=== PATIENT | male | born 1980 | race Caucasian/White ===

== ENCOUNTER 2017-06-13 14:15 | Inpatient (IN) | payer MEDICARE, MEDICAID ==
[2017-06-13] MEDS ORDERED: METOCLOPRAMIDE HCL 5 MG/ML VIAL IV ONE (14:48)
[2017-06-13] MEDS ORDERED: NORMAL SALINE 1,000 ML IV ONE (14:48)
[2017-06-13] MEDS ORDERED: diphenhydrAMINE HCL 50 MG/ML VIAL IV ONE (14:48)
[2017-06-13] MEDS ORDERED: diphenhydrAMINE HCL 50 MG/ML VIAL ONE (14:50)
[2017-06-13] MEDS ORDERED: METOCLOPRAMIDE HCL 5 MG/ML VIAL ONE (14:51)
--- NOTE | 2017-06-13 15:11 | ERNOTE ---
Medical Problem HPI - General Chief Complaint: General Assessment Time Seen by Provider: 06/13/17 14:43 Source: patient, family Exam Limitations: no limitations, other - although there appears to be some cognitive impairment - Immun/Allergies/Home Medications Immunizations: IMMUNIZATION HX Immunizations Up to Date Yes History of Influenza Vaccine No Hx Pneumococcal Vaccination No Allergies/Adverse Reactions: Allergies No Known Allergies Allergy (Verified 03/13/16 14:58) Home Medications: HOME MEDICATIONS Levothyroxine Sodium [Synthroid] 50 mcg PO DAILY #0 tablet 06/04/13 [Last Taken 07/05/14 09:00] lamoTRIgine [Lamictal] 300 mg PO DAILY #0 tablet 06/04/13 [Last Taken 07/05/14 09:00] Esomeprazole Magnesium [Nexium] 40 mg PO QAM 07/05/14 [Last Taken 07/05/14 09:00 ] Lisinopril [Zestril] 10 mg PO DAILY 01/27/15 [Last Taken Unknown] Citalopram Hydrobromide [Celexa] 20 mg PO DAILY 07/22/15 [Last Taken Unknown] Naproxen [Naprosyn] 375 mg PO BID #30 tab 10/18/15 [Last Taken Unknown] - History of Present History Narrative: Mother is worried that the patient might be developing a bowel obstruction again as he is having some retching when he tries to eat. He has done this in the past and has a PEG tube in to do any decompression if needed. Timing: intermittent Severity: mild Review of Systems - Review of Systems Constitutional: Present: See HPI EYE: Present: no symptoms reported ENT: Present: no symptoms reported Respiratory: Present: no symptoms reported Cardiology: Present: no symptoms reported Gastrointestinal/Abdominal: Present: no symptoms reported Genitourinary: Present: no symptoms reported Musculoskeletal: Present: no symptoms reported Skin: Present: no symptoms reported Neurological: Present: no symptoms reported Endocrine: Present: no symptoms reported Hematologic/Lymphatic: Present: no symptoms reported Psych: Present: no symptoms reported - Patient's Past Medical History Patient History - Medical: GERD, Hypothyroidism, Other - bowel obstruction Patient History - Cardiac/Respiratory: Hypertension Patient History - Cancer: No Hx of Cancer Patient History - Surgical Procedures: Appendectomy, Cholecystectomy, Colon Resection, Other - PEG tube Patient History - Other: None - Family History Mother Family History - Medical: Diabetes Type 2 Insulin Dependent Family History - Cardiac/Respiratory: No pertinent hx Father Family History - Medical: No pertinent hx Family History - Cardiac/Respiratory: No pertinent hx - Social History Living Situations: home Abuse History: No History of abuse Psych History: No pertinent hx Smoking Status: Never smoker Have you smoked in the past 12 months: No Do you dip or chew tobacco: No Alcohol Use: sober Drug Use: none - Immunizations Immunizations Up to Date: Yes Hx Pneumococcal Vaccination: No History of Influenza Vaccine: No Physical Exam - Physical Exam General Appearance: Present: wd/wn, alert, no apparent distress Head Exam: Present: normal inspection, no evidence of injury Eye Exam: Normal inspection: bilateral, PERRL: bilateral Ears, Nose, Throat: Present: normal ENT inspection, H, normal pharynx Neck: Present: normal inspection, nontender Respiratory: Present: no respiratory distress, normal breath sounds, no accessory muscle use, chest nontender, lungs clear Cardiovascular/Chest: Present: no murmur, normal peripheral pulses, tachycardia Gastrointestinal/Abdominal: Present: normal bowel sounds, nontender, nondistended, soft, no organomegaly Rectal Exam: Present: deferred Back Exam: Present: normal inspection, normal range of motion Extremity Exam: Present: normal inspection, non-tender, no edema, normal range of motion Neurological Exam: Present: alert, oriented, normal mood/affect Skin Exam: Present: normal color, warm/dry Lymphatic Exam: Present: no adenopathy ED Progress - Results and Orders Patient's Lab Results:: I have reviewed the patient's lab results. - Vital Signs Patient's Vital Signs:: I have reviewed the patient's vital signs. Vital Signs: Vital Signs 06/13/17 14:26 Temperature 35.6 C L Pulse Rate 114 H Respiratory 18 Rate Blood Pressure 96/62 O2 Sat by Pulse 96 Oximetry - X-Ray X-Ray #1 X-Ray: abdomen Interpretation: Reviewed by me - Progress/Reassessment Chief Complaint: General Assessment Plan - Plan Plan: Unclear etiology for the pancreatitis, but the patient does not have any significant abdominal pain and as he appears to be in renal insufficiency from dehydration we will hold off on any CT at this moment. Patient be admitted for IV fluids, correction of the hypokalemia and possible CT versus ultrasound of the abdomen. Departure Clinical Impression: Dehydration, Hypokalemia Pancreatitis Qualifiers: Chronicity: acute Pancreatitis type: idiopathic Acute pancreatitis complication : unspecified Qualified Code(s): K85.00 - Idiopathic acute pancreatitis without necrosis or infection - Departure Disposition: Still a patient Condition: Fair
[2017-06-13 15:20] LABS: Hematocrit 48.1 % (42.0-52.0); Mean Cell Volume 82.5 fl (78-100); Mean Corpuscular Hemoglobin 30.9 pg (27-31); Mean Corpuscular Hgb Conc 37.4 g/dl (32-36); Mean Platelet Volume 9.6 fl (6.0-9.5); Platelet Count 260 K/mm3 (150-450); Red Blood Count 5.83 M/mm3 (4.7-6.0); Red Cell Distribution Width 12.1 % (11.5-14.0); White Blood Count 10.7 K/mm3 (4.0-10.5)
[2017-06-13 15:21] LABS: Total Cells Counted 100
[2017-06-13 15:31] LABS: Albumin * 3.9 gm/dl (3.4-5.0); Anion Gap 18.8 mmol/L (6.8-13.8); BUN/Creatinine Ratio 9.9 (9.0-21.6); Bilirubin, Total 0.6 mg/dL (0.0-1.1); Calcium * 9.2 mg/dL (7.9-10.9); Carbon Dioxide 22.2 mmol/L (24-32.6); Magnesium 2.4 mg/dL (1.2-2.8); Total Protein 8.3 gm/dL (6.2-8.2)
[2017-06-13 15:55] LABS: Atypical (Reactive) Lymph 1 % (0-2); Band 10 % (0-2.0); Immature Granulocyte 1 (0-1); Lymphocyte 8 % (20-51); Monocyte 19 % (0-9); Neutrophil 61 % (42-75); Neutrophil # 6.5 K/mm3 (1.3-6.0)
[2017-06-13 15:57] LABS: Platelet Estimate Normal (NORMAL); RBC Morphology Normal (NORMAL)
[2017-06-13 15:58] LABS: Dohle Bodies 1+; Toxic Granulation 1+
[2017-06-13] MEDS ORDERED: POTASSIUM CHLORIDE 20 MEQ in NORMAL SALINE 1,000 ML IV ONE ×2 (16:11→16:45)
--- NOTE | 2017-06-13 19:43 | HP ---
Chief Complaint - Chief Complaint Date of Service: 06/13/17 Time of Service: 17:13 Chief Complaint: Retching History of Present Illness: Reji is a 37 yo male that presents to the [facility] ER with three days of retching. Reji is cognitively impaired and most of the history is obtained from his mom. He has a history of intestinal malrotation and bowel obstructions. He has a PEG tube that has been used in the past for decompression during episodes of bowel obstruction. The retching was not associated with any other symptoms so patient and mother did not bring him to the ER until today. Normally when he has a bowel obstruction he has no bowel sounds and stool amount decreases. The patient's mom reports he has continued to have normal bowel movements and normal bowel sounds this week. He denies abdominal pain, but his mom reports he has a high pain tolerance and does not normally have pain with his prior bowel obstructions. - Patient's Past Medical History Patient History - Medical: GERD, Hypothyroidism, Other - Intestinal malrotation/ bowel obstruction Patient History - Cardiac/Respiratory: Hypertension Patient History - Cancer: No Hx of Cancer Patient History - Surgical Procedures: Appendectomy, Cholecystectomy, Colon Resection, Other - PEG tube placement Patient History - Other: None - Family History Mother Family History - Medical: Diabetes Type 2 Insulin Dependent Family History - Cardiac/Respiratory: No pertinent hx Father Family History - Medical: No pertinent hx Family History - Cardiac/Respiratory: No pertinent hx - Social History Living Situations: home Abuse History: No History of abuse Psych History: No pertinent hx Smoking Status: Never smoker Have you smoked in the past 12 months: No Do you dip or chew tobacco: No Alcohol Use: sober Drug Use: none - Immunizations Immunizations Up to Date: Yes Hx Pneumococcal Vaccination: No History of Influenza Vaccine: No Review Of Systems (GEN) - Review of Systems Generalized/Overall Review: Absent: Weakness, Chills, Fever EENTM: Present: No Symptoms Reported Respiratory: Absent: Cough, Shortness of Breath Cardiac: Absent: Chest Pain, Edema, Palpitations Abdominal: Present: Vomiting, Diarrhea - Normal for patient. Absent: Nausea, Abdominal Pain Genitourinary: Present: No Symptoms Reported Musculoskeletal: Present: No Symptoms Reported Neurological: Present: No Symptoms Reported Skin: Present: No Symptoms Reported Immunizations: IMMUNIZATION HX Immunizations Up to Date Yes History of Influenza Vaccine No Hx Pneumococcal Vaccination No Allergies/Adverse Reactions: Allergies Allergy/AdvReac Type Severity Reaction Status Date / Time No Known Allergies Allergy Verified 06/13/17 17:40 Home Medications: HOME MEDICATIONS Levothyroxine Sodium [Synthroid] 50 mcg PO DAILY #0 tablet 06/04/13 [Last Taken 06/13/17] lamoTRIgine [Lamictal] 300 mg PO DAILY #0 tablet 06/04/13 [Last Taken 06/13/17] Esomeprazole Magnesium [Nexium] 40 mg PO QAM 07/05/14 [Last Taken 06/13/17] Lisinopril [Zestril] 10 mg PO DAILY 01/27/15 [Last Taken 06/13/17] Citalopram Hydrobromide [Celexa] 20 mg PO DAILY 07/22/15 [Last Taken 06/13/17] Exam - Exam Vital Signs: Vital Signs - Last Taken Temp 36.9 C 06/13/17 17:44 Pulse 102 H 06/13/17 17:44 Resp 18 06/13/17 17:44 BP 101/63 06/13/17 17:44 Pulse Ox 100 06/13/17 17:44 Constitutional: Present: Alert, Oriented x3, Cooperative ENT Exam: Present: hearing grossly normal Eye Exam: bilateral eye: normal inspection Respiratory: Present: lungs clear, normal breath sounds, no respiratory distress Cardiovascular/Chest: Present: regular rate, rhythm, no edema, no murmur Abdomen: Present: Normal bowel sounds, soft, nontender, nondistended, no rebound tenderness, no hepatospenomegaly, other - PEG tube present surrounded with gauze (mom reports tube normally leaks a little) Skin Exam: Present: normal color, warm/dry, no cyanosis Appearance: Present: appropriate appearance, appropriate insight Eye contact: Present: cooperative, good eye contact, normal speech Diagnostic Studies: Laboratory Results WBC 10.7 K/mm3 (4.0-10.5) H 06/13/17 15:17 RBC 5.83 M/mm3 (4.7-6.0) 06/13/17 15:17 Hgb 18.0 gm/dL (13.5-18.0) 06/13/17 15:17 Hct 48.1 % (42.0-52.0) 06/13/17 15:17 MCV 82.5 fl (78-100) 06/13/17 15:17 MCH 30.9 pg (27-31) 06/13/17 15:17 MCHC 37.4 g/dl (32-36) H 06/13/17 15:17 RDW 12.1 % (11.5-14.0) 06/13/17 15:17 Plt Count 260 K/mm3 (150-450) 06/13/17 15:17 MPV 9.6 fl (6.0-9.5) H 06/13/17 15:17 Neutrophils % (Manual) 61 % (42-75) 06/13/17 15:17 Band Neuts % (Manual) 10 % (0-2.0) H 06/13/17 15:17 Lymphocytes % (Manual) 8 % (20-51) L 06/13/17 15:17 Monocytes % (Manual) 19 % (0-9) H 06/13/17 15:17 Immature Granulocytes 1 (0-1) 06/13/17 15:17 Neutrophils # (Manual) 6.5 K/mm3 (1.3-6.0) H 06/13/17 15:17 Lymphocytes # (Manual) 0.9 k/mm3 (1.5-3.5) L 06/13/17 15:17 Monocytes # (Manual) 2.0 k/mm3 (0.0-1.0) H 06/13/17 15:17 Atypic/Reactive Lymphs 1 % (0-2) 06/13/17 15:17 Toxic Granulation 1+ 06/13/17 15:17 Toxic Vacuolation 1+ 06/13/17 15:17 Dohle Bodies 1+ 06/13/17 15:17 Platelet Estimate Normal (NORMAL) 06/13/17 15:17 RBC Morphology Normal (NORMAL) 06/13/17 15:17 Sodium 132 mmol/L (132-142) 06/13/17 15:17 Plasma Sodium 133 mmol/L (130-142) 06/13/17 15:17 Potassium 3.0 mmol/L (3.4-4.6) L 06/13/17 15:17 Chloride 94 mmol/L (97-106) L 06/13/17 15:17 Carbon Dioxide 22.2 mmol/L (24-32.6) L 06/13/17 15:17 Anion Gap 18.8 mmol/L (6.8-13.8) H 06/13/17 15:17 BUN 18 mg/dL (6-23) 06/13/17 15:17 Creatinine 1.81 mg/dL (0.4-1.4) H 06/13/17 15:17 Est GFR (Non-Af Amer) 45 mL/min (60-130) L D 06/13/17 15:17 BUN/Creatinine Ratio 9.9 (9.0-21.6) 06/13/17 15:17 Random Glucose 167 mg/dL (70-110) H 06/13/17 15:17 Calcium 9.2 mg/dL (7.9-10.9) 06/13/17 15:17 Calcium Adj for Albumin 9.0 mg/dL (8.4-10.2) 06/13/17 15:17 Magnesium 2.4 mg/dL (1.2-2.8) 06/13/17 15:17 Total Bilirubin 0.6 mg/dL (0.0-1.1) 06/13/17 15:17 AST 23 U/L (0-48) 06/13/17 15:17 ALT 51 U/L (19-67) 06/13/17 15:17 Alkaline Phosphatase 81 U/L (50-170) 06/13/17 15:17 Total Protein 8.3 gm/dL (6.2-8.2) H 06/13/17 15:17 Albumin 3.9 gm/dl (3.4-5.0) 06/13/17 15:17 Lipase 635 U/L (73-393) H 06/13/17 15:17 Assessment/Plan - Assessment/Plan (1) Pancreatitis Assessment: Reji is a 37 yo male with Acute Pancreatitis. Lipase is 600. Patient is not the usual historian and symptoms may not be classic of pancreatitis. He denies abdominal pain, but due to the elevated lipase will admit for observation. Will make NPO and treat with IV fluids. Will recheck CMP and lipase/amylase in AM. If enzymes worsen will get abdominal CT. Will check lipids. No alcohol use and patient has previously had cholecystectomy. Problem: Acute Qualifiers: Chronicity: acute Pancreatitis type: idiopathic Acute pancreatitis complication: unspecified Qualified Code(s): K85.00 - Idiopathic acute pancreatitis without necrosis or infection (2) Hypokalemia Assessment: Will replace potassium in fluids and monitor potassium. Problem: Acute
[2017-06-14 06:33] LABS: Albumin * 3.5 gm/dl (3.4-5.0); Anion Gap 16.5 mmol/L (6.8-13.8); BUN/Creatinine Ratio 13.7 (9.0-21.6); Bilirubin, Total 0.7 mg/dL (0.0-1.1); Ca. Corrected For Albumin 8.7 mg/dL (8.4-10.2); Calcium * 8.6 mg/dL (7.9-10.9); Carbon Dioxide 23.1 mmol/L (24-32.6); Potassium 2.6 mmol/L (3.4-4.6); Total Protein 7.5 gm/dL (6.2-8.2)
[2017-06-14] MEDS: POTASSIUM CHLORIDE 20 MEQ TABLET.SA PO SCH ×2 (08:00→17:01)
[2017-06-14] MEDS: NORMAL SALINE 1,000 ML IV PRN ×3 (08:05→18:54)
[2017-06-14 12:19] LABS: Albumin * 3.2 gm/dl (3.4-5.0); Anion Gap 13.7 mmol/L (6.8-13.8); BUN/Creatinine Ratio 13.8 (9.0-21.6); Bilirubin, Total 0.7 mg/dL (0.0-1.1); Ca. Corrected For Albumin 8.5 mg/dL (8.4-10.2); Calcium * 8.2 mg/dL (7.9-10.9); Carbon Dioxide 24.1 mmol/L (24-32.6); Potassium 2.8 mmol/L (3.4-4.6); Total Protein 6.8 gm/dL (6.2-8.2)
[2017-06-14 13:09] LABS: Amylase * 88 U/L (25-115); Lipase 706 U/L (73-393)
[2017-06-14] MEDS ORDERED: DIATRIZOATE MEGLUMINE, SODIUM 30 ML BTL PO ONE (13:56)
[2017-06-14] MEDS: CITALOPRAM HYDROBROMIDE 20 MG TABLET PO SCH (18:20)
[2017-06-14] MEDS: LISINOPRIL 10 MG TABLET PO SCH (18:20)
[2017-06-14] MEDS: LEVOTHYROXINE SODIUM 50 MCG TABLET PO SCH (18:20)
[2017-06-14] MEDS: lamoTRIgine 100 MG TABLET PO SCH (18:21)
[2017-06-14] MEDS: POTASSIUM CHLORIDE IN WATER 100 ML IV SCH ×3 (20:33→23:58)
--- NOTE | 2017-06-14 23:51 | PN ---
Subjective - Date and Time Seen Date: 06/14/17 Time: 16:45 Subjective Narrative: Reji continued to have retching episodes. Especially after swallowing potassium pill. Potassium critical low at 2.6. Denies fever, chills. Lipase elevated at 800. Objective - Vitals Vitals: Last Vital Signs Temp 36.8 C 06/14/17 15:13 Pulse 99 06/14/17 18:20 Resp 22 H 06/14/17 15:13 BP 148/96 06/14/17 18:20 Pulse Ox 96 06/14/17 15:13 - Exam Constitutional: Present: Alert, Oriented x3, Cooperative ENT Exam: Present: hearing grossly normal Respiratory: Present: lungs clear, normal breath sounds Cardiovascular/Chest: Present: regular rate, rhythm, no murmur Abdomen: Present: Normal bowel sounds, soft, nontender, nondistended, other - PEG tube in place Skin Exam: Present: normal color, warm/dry, no cyanosis Assessment/Plan - Problems/Diagnosis (1) Hypokalemia Problem: Acute Narrative: Severe hypokalemia 2.6. Not responding to replaced potassium so far. Patient retching after potassium. Will replace potassium with IV potassium and recheck. Due to critical potassium not responding to initial treatment and unable to tolerate oral potassium will admit to inpatient status. (2) Pancreatitis Problem: Acute Qualifiers: Chronicity: acute Pancreatitis type: idiopathic Acute pancreatitis complication: unspecified Qualified Code(s): K85.00 - Idiopathic acute pancreatitis without necrosis or infection Narrative: Elevated lipase. Will get abdominal CT to evaluate pancreas. Continue NPO and IV fluids.
[2017-06-15] MEDS: POTASSIUM CHLORIDE IN WATER 100 ML IV SCH (01:34)
[2017-06-15 06:16] LABS: Hematocrit 41.6 % (42.0-52.0); Hemoglobin 15.3 gm/dL (13.5-18.0); Mean Cell Volume 83.7 fl (78-100); Mean Corpuscular Hemoglobin 30.8 pg (27-31); Mean Corpuscular Hgb Conc 36.8 g/dl (32-36); Mean Platelet Volume 9.4 fl (6.0-9.5); Platelet Count 201 K/mm3 (150-450); Red Blood Count 4.97 M/mm3 (4.7-6.0); Red Cell Distribution Width 12.2 % (11.5-14.0); White Blood Count 7.8 K/mm3 (4.0-10.5)
[2017-06-15 06:18] LABS: Albumin * 3.1 gm/dl (3.4-5.0); Anion Gap 13.8 mmol/L (6.8-13.8); BUN/Creatinine Ratio 13.8 (9.0-21.6); Bilirubin, Total 0.6 mg/dL (0.0-1.1); Ca. Corrected For Albumin 8.8 mg/dL (8.4-10.2); Calcium * 8.4 mg/dL (7.9-10.9); Carbon Dioxide 24.1 mmol/L (24-32.6); Potassium 2.9 mmol/L (3.4-4.6); Total Protein 6.7 gm/dL (6.2-8.2)
[2017-06-15 06:19] LABS: Total Cells Counted 100
[2017-06-15 06:39] LABS: Atypical (Reactive) Lymph 3 % (0-2); Band 17 % (0-2.0); Dohle Bodies 2+; Lymphocyte 25 % (20-51); Monocyte 6 % (0-9); Neutrophil 49 % (42-75); Neutrophil # 3.8 K/mm3 (1.3-6.0); Platelet Estimate Normal (NORMAL); Toxic Granulation 1+
[2017-06-15] MEDS ORDERED: PANTOPRAZOLE SODIUM 40 MG TABLET.EC PO SCH (07:00)
[2017-06-15] MEDS: LEVOTHYROXINE SODIUM 50 MCG TABLET PO SCH (07:23)
[2017-06-15] MEDS: NORMAL SALINE 1,000 ML IV PRN (08:26)
[2017-06-15] MEDS: CITALOPRAM HYDROBROMIDE 20 MG TABLET PO SCH (09:20)
[2017-06-15] MEDS: LISINOPRIL 10 MG TABLET PO SCH (09:20)
[2017-06-15] MEDS: lamoTRIgine 100 MG TABLET PO SCH (09:20)
[2017-06-15] MEDS ORDERED: POTASSIUM CHLORIDE IN WATER 100 ML IV ONE (10:55)
[2017-06-15] MEDS ORDERED: POTASSIUM CHLORIDE 40 MEQ/15 ML BTL PO ONE (10:56)
[2017-06-15 14:19] VITALS: BP 141/93
[2017-06-15 16:27] LABS: Albumin * 3.4 gm/dl (3.4-5.0); Anion Gap 15.2 mmol/L (6.8-13.8); BUN/Creatinine Ratio 12.8 (9.0-21.6); Bilirubin, Total 0.6 mg/dL (0.0-1.1); Calcium * 8.8 mg/dL (7.9-10.9); Carbon Dioxide 24.1 mmol/L (24-32.6); Potassium 3.3 mmol/L (3.4-4.6); Total Protein 7.2 gm/dL (6.2-8.2)
--- NOTE | 2017-06-15 17:10 | DS ---
(1) Hypokalemia Problem: Acute (2) Pancreatitis Problem: Acute Qualifiers: Chronicity: acute Pancreatitis type: idiopathic Acute pancreatitis complication: unspecified Qualified Code(s): K85.00 - Idiopathic acute pancreatitis without necrosis or infection Description of Stay: Reji is a 37 yo male that was admitted due to hypokalemia and pancreatitis based on elevated lipase. He was admitted to acute inpatient status. He had retching episodes at home that had brought him to the ER, but from admission he had no further episodes. Lipase enzymes were trended and stable. He had no reported abdominal pain (although per patient's mom he has cognitive impairment and never reports pain). A CT scan was completed which showed no pancreatic abscess or mass. It showed some intestinal inflammation and chronic changes of history of malrotation. Potassium was replaced. He felt well, although lipase was still elevated. Without any acute concern on CT scan he was discharged to home once potassium was improved. Will follow up in a week for recheck of potassium and lipase. Procedures Performed: none Discharge Disposition: Home self care Disposition: Home self-care Condition: Fair Discharge Activity: Activity as tolerated Discharge Diet: General/regular food Referrals: Contreras Arnold DO [Staff Physician] - (Early next week, ok for Sunday) Problem Oriented Discharge Instructions to Patient/Family: Hypokalemia Additional Patient Instructions (free text): Resume all prior cares and medications. We will follow up early next week to recheck potassium. Follow up with Dr. Arnold on 06-18-17 @ 10:00am. Complete Home Medications List: Complete Home Medication List: Levothyroxine Sodium [Synthroid] 50 mcg PO DAILY #0 tablet 06/04/13 lamoTRIgine [Lamictal] 300 mg PO DAILY #0 tablet 06/04/13 Esomeprazole Magnesium [Nexium] 40 mg PO QAM 07/05/14 Lisinopril [Zestril] 10 mg PO DAILY 01/27/15 Citalopram Hydrobromide [Celexa] 20 mg PO DAILY 07/22/15
== END 2017-06-15 17:43 | disposition home or self-care (01) | DRG 439 ==
LOC: ER 14:15 → MS 16:10 → OBSVTOIN 06-14 13:06
PROVIDERS: ADMIT Family Medicine; ATTEND Family Medicine
DX: K85.00 Idiopathic acute pancreatitis without necrosis or infection (principal); N17.9 Acute kidney failure, unspecified; E86.0 Dehydration; E87.6 Hypokalemia; G31.84 Mild cognitive impairment of uncertain or unknown etiology; K21.9 Gastro-esophageal reflux disease without esophagitis; E03.9 Hypothyroidism, unspecified; I10 Essential (primary) hypertension